=== PATIENT | male | born 1980 | race Caucasian/White ===

== ENCOUNTER 2019-05-27 03:10 | Observation (INO) | payer BC, OTHER ==
[2019-05-27 04:09] LABS: BASOPHILS % (AUTO) 0.6 % (0.0-5.0); EOSINOPHILS % (AUTO) 5.1 % (0.0-8.0); HEMATOCRIT 42.5 % (42-54); LYMPHOCYTES % (AUTO) 29.8 % (21.0-51.0); MEAN CORPUSCULAR HEMOGLOBIN 28.8 pg (27.0-33.0); MEAN CORPUSCULAR HGB CONC 34.8 g/dL (32.0-36.0); MEAN CORPUSCULAR VOLUME 82.7 fL (79-99); NEUTROPHILS % (AUTO) 58.2 % (40.0-77.0); PLATELET COUNT (AUTO) 222 K/uL (130-400); RED BLOOD CELL COUNT(AUTO) 5.14 MIL/uL (4.50-6.20); RED CELL DISTRIBUTION WIDTH 12.5 % (11.0-15.5); WHITE BLOOD COUNT (AUTO) 7.8 K/uL (4.8-10.8)
[2019-05-27 04:31] LABS: INR 0.95 (0.85-1.15); PARTIAL THROMBOPLASTIN TIME 23.6 SEC (26.3-35.5)
[2019-05-27 04:39] LABS: ALBUMIN 3.7 g/dL (3.5-5.0); BILIRUBIN,TOTAL 0.4 mg/dL (0.2-1.0); CREATININE 1.1 mg/dL (0.5-1.5); TOTAL PROTEIN, SERUM 6.8 g/dL (6.0-8.3)
[2019-05-27] MEDS ORDERED: POTASSIUM CHLORIDE 20 MEQ ERTAB PO ONE ×3 (05:26→12:45)
[2019-05-27] MEDS ORDERED: SODIUM CHLORIDE 0.9% 1000ML 1,000 ML IV ONE (08:51)
[2019-05-27] MEDS ORDERED: SODIUM BICARB 8.4% 50ML SYRING 150 MEQ in DEXTROSE 5%-WATER 1,000 ML IV SCH (09:15)
[2019-05-27] MEDS ORDERED: LIDOCAINE HCL-MPF 1% 2ML VIAL IV PRN (09:30)
[2019-05-27] MEDS ORDERED: POTASSIUM CHLORIDE 20 MEQ ERTAB PO PRN (09:30)
[2019-05-27] MEDS ORDERED: ZOLPIDEM TARTRATE 5 MG TAB PO PRN (09:30)
[2019-05-27] MEDS ORDERED: POTASSIUM CHLORIDE 20MEQ/100ML 100 ML IV PRN (09:30)
[2019-05-27] MEDS ORDERED: HYDRALAZINE HCL 20 MG/ML VIAL IV PRN (09:30)
[2019-05-27] MEDS ORDERED: POTASSIUM CHLORIDE 10% ELIXIR 20 MEQ/15 ML UDCUP PO PRN (09:30)
[2019-05-27] MEDS ORDERED: NITROGLYCERIN 0.4 MG SL TAB SL PRN (09:30)
[2019-05-27] MEDS ORDERED: POTASSIUM CHLORIDE 20 MEQ ERTAB PO SCH (09:30)
[2019-05-27] MEDS ORDERED: ACETAMINOPHEN 325 MG TAB PO PRN (09:30)
[2019-05-27] MEDS ORDERED: HYDRALAZINE HCL 25 MG TABLET PO SCH (09:30)
[2019-05-27 10:02] LABS: HEMOGLOBIN A1C 5.6 % (4.0-6.0)
[2019-05-27 10:40] LABS: APPEARANCE,URINE Clear (CLEAR); BILIRUBIN,URINE Negative (NEGATIVE); COLOR,URINE Yellow (YELLOW); GLUCOSE, URINE (UA) Negative (NEGATIVE); KETONES,URINE Negative (NEGATIVE); LEUKOCYTE ESTERASE ,URINE Negative (NEGATIVE); NITRATE,URINE Negative (NEGATIVE); OCCULT BLOOD,URINE Negative (NEGATIVE); PROTEIN,URINE Negative (NEGATIVE); UROBILINOGEN,URINE 0.2 mg/dL (0.2-1.0)
[2019-05-27 10:44] LABS: PROTEIN,URINE RANDOM 11.2 mg/dL (0-11.9)
[2019-05-27] MEDS ORDERED: PANTOPRAZOLE SODIUM 40 MG TABLET.DR ONE (12:46)
[2019-05-27 13:38] LABS: MYOGLOBIN 179 ng/mL (10-92)
[2019-05-27 13:43] LABS: CREATINE KINASE, TOTAL 1187 U/L (21-232)
--- NOTE | 2019-05-27 16:30 | NUR ---
DCP: HOME Sw met with pt and Nu Garcia [phone]. Pt reports he is independent of all ADLS, drives, in self employed. No DME in home care services. PCP is Dr Liriano, uses [facility] for rx, denies dc needs. Plan is home with Addendum: 05/27/19 at 1633 by CHRISTOPHER ANDRADE SS Amended: Links added.
[2019-05-27 17:02] LABS: MYOGLOBIN 152 ng/mL (10-92)
[2019-05-27 17:06] LABS: CREATINE KINASE, TOTAL 1139 U/L (21-232)
[2019-05-28] MEDS ORDERED: PANTOPRAZOLE SODIUM 40 MG TABLET.DR PO SCH (09:00)
== END 2019-05-27 21:05 | disposition home or self-care (01) ==
LOC: EDH 03:10 → EDHIP 09:30
PROVIDERS: ADMIT Internal Medicine; ATTEND Internal Medicine
DX: M62.82 Rhabdomyolysis (principal); I10 Essential (primary) hypertension; R11.0 Nausea; E87.6 Hypokalemia; Z79.899 Other long term (current) drug therapy; Z88.0 Allergy status to penicillin; Z88.3 Allergy status to other anti-infective agents
CPT/HCPCS: 36415; 70450; 71045; 80053; 81003; 82550 ×4; 83036; 83874 ×5; 84156; 84484; 85025; 85610; 85730; 93005; 99285; G0378 ×11; J3490; J7030; J7070